=== PATIENT | female | born 1990 | race African-American/Black ===

== ENCOUNTER 2019-11-16 10:32 | Emergency (ER) | payer OTHER ==
[~2019-11-16] VITALS: Ht 170.2 cm; Wt 61.7 kg
[2019-11-16 10:37] VITALS: Ht 170.2 cm; Wt 61.7 kg
[2019-11-16 11:03] LABS: BASOPHIL % 0.9 % (0-2); PLATELET COUNT 184 x10^3mcL (130-400)
[2019-11-16 11:19] LABS: CALCIUM 8.9 mg/dL (8.5-10.1); CARBON DIOXIDE 29.5 mmol/L (21-32); CHLORIDE SERUM 105 mmol/L (98-107); CREATININE SERUM 0.8 mg/dL (0.6-1.0); GFR1 > 60 mL/min; GLUCOSE SERUM 85 mg/dL (74-106); POTASSIUM SERUM 4.3 mmol/L (3.5-5.1); SODIUM SERUM 141 mmol/L (136-145)
[2019-11-16 11:24] LABS: ALBUMIN 4.1 g/dL (3.4-5.0); ALKALINE PHOSPHATASE 74 U/L (46-116); ALT/SGPT 27 U/L (14-59); AST/SGOT 15 U/L (15-37); TOTAL PROTEIN, SERUM 7.8 g/dL (6.4-8.2)
[2019-11-16 12:09] LABS: BILIRUBIN TOTAL 0.4 mg/dL (0.20-1.00)
[2019-11-16 12:21] LABS: microscopic required? YES; urine erythrocyte 1+ (NEGATIVE)
[2019-11-16 13:29] VITALS: BP 109/68
== END 2019-11-16 13:29 | disposition home or self-care (01) ==
LOC: ED 10:32
PROVIDERS: Emergency Medicine
DX: N83.02 Follicular cyst of left ovary (principal); N83.01 Follicular cyst of right ovary
CPT/HCPCS: 36415